=== PATIENT | female | born 1990 | race Two or more races ===

== ENCOUNTER 2018-01-25 18:32 | Emergency (ER) | payer MEDICAID ==
[~2018-01-25] VITALS: Ht 160 cm; Wt 74.8 kg
[2018-01-25 18:41] VITALS: BP 127/84
== END 2018-01-25 21:30 | disposition home or self-care (01) ==
LOC: ER 18:32
DX: K04.7 Periapical abscess without sinus (principal)

== ENCOUNTER 2019-02-17 00:46 | Emergency (ER) | payer SELFPAY ==
[~2019-02-17] VITALS: Ht 165.1 cm; Wt 70.3 kg
[2019-02-17 00:52] VITALS: BP 127/92
[2019-02-17 01:17] LABS: Basophils # (auto) 0.1 uL; Basophils % (auto) 0.5 % (0.0-2.0); Eosinophils # (auto) 0.1 uL; Eosinophils % (auto) 0.7 % (0.0-7.0); Hematocrit 39.4 % (36.0-46.0); Hemoglobin 13.5 g/dL (12.2-16.2); Lymphocytes # (auto) 2.4 uL; Lymphocytes % (auto) 13.4 % (10.0-50.0); Mean Corpuscular Hemoglobin 30.6 pg (28.0-32.0); Mean Corpuscular Hgb Conc. 34.4 g/dL (32.0-36.0); Mean Corpuscular Volume 88.8 fL (80.0-100.0); Monocytes # (auto) 0.6 uL; Monocytes % (auto) 3.6 % (0.0-12.0); Neutrophils # (auto) 14.8 uL; Neutrophils % (auto) 81.8 % (37.0-80.0); Platelet Count (auto) 295 10^3/uL (140-450); Red Blood Cells 4.43 10^6/uL (4.0-5.20); Red Cell Distribution Width 12.6 % (11.8-14.3); White Blood Cell 18.1 10^3/uL (4.4-10.8)
[2019-02-17 01:45] LABS: Calcium 8.9 mg/dL (8.5-10.1); Potassium 3.4 mmol/L (3.5-5.1)
[2019-02-17 01:47] LABS: Bilirubin, Total 0.6 mg/dL (0.2-1.0); Total Protein 7.3 g/dL (6.4-8.2)
== END 2019-02-17 02:13 | disposition left against medical advice (07) ==
LOC: ER 00:46
DX: R10.9 Unspecified abdominal pain (principal); Z53.21 Procedure and treatment not carried out due to patient leaving prior to being seen by health care provider
CPT/HCPCS: 36415; 74176; 80053; 83690; 85025